=== PATIENT | male | born 1980 | race Caucasian/White ===

== ENCOUNTER 2017-08-08 17:14 | Inpatient (IN) ==
[2017-08-08] MEDS ORDERED: NS 1,000 ML IV ONE ×2 (17:37→19:02)
[2017-08-08] MEDS ORDERED: ZOFRAN IV ONE (17:38)
[2017-08-08 17:51] LABS: BE -18.3 mmoll (-3.0-3.0); BLOOD TYPE ARTERIAL; METHB 1.2 % (0.0-1.5); O2(CT) 27.3 mL/dL (15.0-23.0); PO2(98.6) 125 mmHg (60-100); SAMPLE BLOOD; SAO2 97.7 % (95.0-100.0); THB 20.2 g/dL (11.5-17.4)
[2017-08-08 17:54] LABS: MODALITY ROOM AIR
[2017-08-08 17:55] LABS: PCO2(98.6) 17 mmHg (35-45)
[2017-08-08 17:56] LABS: DRAW SITE L BRACHIAL
[2017-08-08 18:35] LABS: URINE CULTURE PL NEEDED? NO
[2017-08-08] MEDS ORDERED: HUMULIN R (PARKWAY) IV ONE (18:37)
[2017-08-08 18:38] LABS: BASO% 0.4 % (0.0-0.8); EOS# 0.01 X1000 (0.0-0.7); EOS% 0.1 % (0.0-10.0); HEMATOCRIT 53.2 % (42.0-52.0); LYMPH% 17.2 % (20.5-51.1); MCHC 37.8 g/dL (33-37); MONO# 1.01 X1000 (0.11-0.59); MONO% 6.4 % (1.7-9.3); MPV 9.9 FL (7.4-10.4); NEUT% 74.8 % (42.2-75.2); PLT 279 X1000 (130-400); RBC 6.49 XMIL (4.7-6.1)
[2017-08-08 18:39] LABS: FREE T4 0.94 ng/dL (0.93-1.70); IMM GRAN# 0.17 X1000 (0.0-0.04); IMM GRAN% 1.1 % (0.0-0.5); LYMPH# 2.72 X1000 (1.2-3.4)
[2017-08-08 18:40] LABS: MANUAL DIFF NEEDED? NO
[2017-08-08 18:44] LABS: AGAP 29; ALBUMIN 4.2 g/dL (3.5-5.0); ALKALINE PHOSPHATASE 107 U/L (32-122); BUN 20 mg/dL (8-22); CALCIUM 8.4 mg/dL (8.8-10.2); CHLORIDE 84 mmol/L (98-107); COSMO 267; GOT 11 U/L (10-34); GPT 13 U/L (10-44); POTASSIUM 5.2 mmol/L (3.5-5.1); SODIUM 122 mmol/L (136-145); TCO2 9 mmol/L (25-35); TOTAL PROTEIN 7.3 g/dL (6.3-8.3)
[2017-08-08 18:54] LABS: UR AMPHETAMINES QUAL NONE DETECTED (NONE DETECT); UR BARBITUATES QUAL NONE DETECTED (NONE DETECT); UR BENZODIAZEPIN QUAL NONE DETECTED (NONE DETECT); UR CANNABINOIDS QUAL NONE DETECTED (NONE DETECT); UR COCAINE QUAL NONE DETECTED (NONE DETECT); UR MDMA QUAL NONE DETECTED (NONE DETECT); UR METHADONE QUAL NONE DETECTED (NONE DETECT); UR METHAMPHETAMINE QUAL NONE DETECTED (NONE DETECT); UR OPIATES QUAL NONE DETECTED (NONE DETECT); UR OXYCODONE QUAL NONE DETECTED (NONE DETECT); UR PCP QUAL NONE DETECTED (NONE DETECT); UR TCA QUAL NONE DETECTED (NONE DETECT)
[2017-08-08] MEDS ORDERED: NS 2,000 ML ONE (18:57)
[2017-08-08] MEDS ORDERED: HUMULIN R (PARKWAY) 100 UNITS in NS 100 ML IV SCH (19:00)
[2017-08-08] MEDS ORDERED: ZOFRAN IV PRN ×2 (19:03→23:22)
[2017-08-08 19:09] LABS: BILIRUBIN URINE NEGATIVE (NEGATIVE); BLOOD URINE TRACE (NEGATIVE); CLARITY CLEAR (CLEAR); COLOR YELLOW; LEUKOCYTES URINE NEGATIVE (NEGATIVE); NITRITE URINE NEGATIVE (NEGATIVE); PROTEIN URINE 2+(100 mg/dL) mg/dL (NEGATIVE); UROBILINOGEN URINE NORMAL
[2017-08-08 19:12] LABS: URINE CAST GRANULAR PRESENT /LPF; URINE CRYSTAL NONE SEEN /HPF; URINE EPITHELIAL CELLS <10 /HPF (<10); URINE RBC <10 /HPF (<10); URINE SOURCE CLEAN CATCH; URINE WBC <10 /HPF (<10)
[2017-08-08] MEDS: NS 1,000 ML IV SCH ×3 (21:00→23:00)
[2017-08-08 22:57] LABS: CHLORIDE 97 mmol/L (98-107); POTASSIUM 4.2 mmol/L (3.5-5.1); SODIUM 126 mmol/L (136-145)
[2017-08-08 22:58] LABS: AGAP 17; BUN 18 mg/dL (8-22); COSMO 264; TCO2 12 mmol/L (25-35)
[2017-08-08 22:59] LABS: MAGNESIUM 1.5 mg/dL (1.5-2.7)
[2017-08-08 23:02] LABS: CALCIUM 6.8 mg/dL (8.8-10.2)
[2017-08-08 23:06] LABS: HEMOGLOBIN A1C 12.7 % (4.8-6.0)
[2017-08-08] MEDS ORDERED: MAGNESIUM SULFATE 2 GM/S.W.I. 2 GM/50 ML IVPB IV PRN (23:22)
[2017-08-08] MEDS ORDERED: D50W SYRINGE IV PRN (23:22)
[2017-08-08] MEDS ORDERED: SODIUM PHOSPHATE 30 MMOL in D5W 250 ML IV PRN (23:22)
[2017-08-08] MEDS ORDERED: POTASSIUM CHLORIDE 20 MEQ/SWI 40 MEQ/200 ML IVPB IV PRN (23:22)
[2017-08-08] MEDS ORDERED: KLOR-CON PO PRN (23:22)
[2017-08-08] MEDS ORDERED: SODIUM BICARBONATE 8.4% 100 MEQ in D5W 500 ML IV PRN (23:22)
[2017-08-08] MEDS ORDERED: POTASSIUM CHLORIDE 20 MEQ/SWI 20 MEQ/100 ML IVPB IV PRN (23:22)
[2017-08-08] MEDS ORDERED: D5 NS 1,000 ML IV PRN (23:29)
[2017-08-08 23:58] LABS: BE -13.1 mmoll (-3.0-3.0); BLOOD TYPE ARTERIAL; DRAW SITE L RADIAL; METHB 1.1 % (0.0-1.5); O2(CT) 22.8 mL/dL (15.0-23.0); PCO2(98.6) 23 mmHg (35-45); PO2(98.6) 117 mmHg (60-100); SAMPLE BLOOD; SAO2 97.8 % (95.0-100.0); THB 16.9 g/dL (11.5-17.4); pH(98.6) 7.29 (7.35-7.45)
[2017-08-09] MEDS: KLOR-CON PO PRN ×2 (00:02→08:57)
[2017-08-09 00:07] LABS: ALLEN TEST YES; MODALITY ROOM AIR
[2017-08-09 02:08] LABS: BE -7.9 mmoll (-3.0-3.0); BLOOD TYPE ARTERIAL; DRAW SITE L RADIAL; METHB 0.7 % (0.0-1.5); PCO2(98.6) 28 mmHg (35-45); PO2(98.6) 112 mmHg (60-100); SAMPLE BLOOD; THB 16.2 g/dL (11.5-17.4); pH(98.6) 7.36 (7.35-7.45)
[2017-08-09 02:10] LABS: MODALITY ROOM AIR
[2017-08-09 02:11] LABS: ALLEN TEST YES
[2017-08-09 02:52] LABS: AGAP 11; BUN 16 mg/dL (8-22); CALCIUM 7.3 mg/dL (8.8-10.2); CHLORIDE 102 mmol/L (98-107); COSMO 265; MAGNESIUM 2.3 mg/dL (1.5-2.7); SODIUM 129 mmol/L (136-145); TCO2 16 mmol/L (25-35)
[2017-08-09 06:43] LABS: BASO% 0.2 % (0.0-0.8); EOS# 0.02 X1000 (0.0-0.7); EOS% 0.2 % (0.0-10.0); HEMATOCRIT 40.4 % (42.0-52.0); HEMOGLOBIN 15.4 g/dL (14.0-18.0); IMM GRAN# 0.05 X1000 (0.0-0.04); IMM GRAN% 0.4 % (0.0-0.5); LYMPH# 3.18 X1000 (1.2-3.4); LYMPH% 24.6 % (20.5-51.1); MANUAL DIFF NEEDED? YES; MCH 31.2 PG (27-31); MCHC 38.1 g/dL (33-37); MCV 81.8 FL (81-99); MONO# 1.56 X1000 (0.11-0.59); MONO% 12.1 % (1.7-9.3); MPV 9.7 FL (7.4-10.4); NEUT% 62.5 % (42.2-75.2); PLT 237 X1000 (130-400); RBC 4.94 XMIL (4.7-6.1)
[2017-08-09 07:01] LABS: BLOOD TYPE ARTERIAL; SAMPLE BLOOD
[2017-08-09 07:12] LABS: AGAP 10; BUN 15 mg/dL (8-22); CALCIUM 7.7 mg/dL (8.8-10.2); CHLORIDE 101 mmol/L (98-107); COSMO 264; POTASSIUM 4.5 mmol/L (3.5-5.1); SODIUM 129 mmol/L (136-145); TCO2 18 mmol/L (25-35)
[2017-08-09 07:49] LABS: LYMPHS 26 % (21-51); MONO 6 % (1-9)
[2017-08-09] MEDS: NS 1,000 ML IV SCH ×3 (09:58→20:08)
[2017-08-09] MEDS ORDERED: LEVEMIR INSULIN *HA ONE (10:30)
[2017-08-09] MEDS: LEVEMIR INSULIN *HA SUBQ SCH ×2 (10:36→20:18)
[2017-08-09] MEDS: ZOLOFT PO SCH (10:38)
[2017-08-09] MEDS: NICODERM PATCH TD SCH (10:38)
[2017-08-09 11:09] LABS: AGAP 8; BUN 13 mg/dL (8-22); CALCIUM 7.4 mg/dL (8.8-10.2); CHLORIDE 100 mmol/L (98-107); COSMO 265; MAGNESIUM 1.8 mg/dL (1.5-2.7); POTASSIUM 3.9 mmol/L (3.5-5.1); SODIUM 127 mmol/L (136-145); TCO2 20 mmol/L (25-35)
[2017-08-09] MEDS ORDERED: HUMULIN R DOSE (PARKWAY) IV ONE (12:19)
[2017-08-09] MEDS ORDERED: POTASSIUM PHOSPHATE 20 MMOL in NS 250 ML IV ONE (13:00)
[2017-08-09] MEDS ORDERED: HUMULIN R (PARKWAY) SUBQ SCH (16:00)
[2017-08-09] MEDS ORDERED: PRILOSEC PO ONE (18:50)
[2017-08-09] MEDS: HUMALOG DOSE (PARKWAY) SUBQ SCH (20:17)
[2017-08-09] MEDS: TYLENOL PO PRN (22:55)
[2017-08-10] MEDS: NS 1,000 ML IV SCH ×2 (04:02→12:48)
[2017-08-10] MEDS ORDERED: PRILOSEC PO SCH (07:00)
[2017-08-10] MEDS: HUMALOG DOSE (PARKWAY) SUBQ SCH ×4 (07:19→17:57)
[2017-08-10] MEDS: TYLENOL PO PRN (07:22)
[2017-08-10] MEDS: LEVEMIR INSULIN *HA SUBQ SCH (09:19)
[2017-08-10] MEDS: ZOLOFT PO SCH (09:20)
[2017-08-10] MEDS: NICODERM PATCH TD SCH (09:20)
[2017-08-10] MEDS ORDERED: LEVEMIR INSULIN *HA SUBQ SCH (14:10)
[2017-08-10 15:35] VITALS: BP 131/79
== END 2017-08-10 19:27 | disposition home or self-care (01) ==
LOC: P.ED 17:14 → P.ICU 17:15 → P.MEDSURG 08-09 20:57
PROVIDERS: ATTEND Internal Medicine